=== PATIENT | male | born 1950 | race Caucasian/White ===

== ENCOUNTER → 2023-11-21 14:35 | Outpatient (REF) | payer MEDICARE, BC, SELFPAY ==
[2023-11-21 16:10] LABS: PSA, Total - Diagnostic < 0.06 ng/ml (0.0-4.0)
== END ==
LOC: REG 14:35
PROVIDERS: ATTENDING PHYSICIAN Specialist; FAMILY PHYSICIAN Family Medicine
DX: C61 Malignant neoplasm of prostate (principal)
CPT/HCPCS: 36415; 84153

== ENCOUNTER → 2024-02-11 10:51 | Outpatient (REF) | payer MEDICARE, BC, SELFPAY ==
[2024-02-11 12:05] LABS: % Basophils 1.2 % (0-2); % Immature Granulocytes 0.4 % (0-0.5); % Lymphocytes 38.1 % (20.5-51.1); % Monocytes 7.7 % (1.7-9.3); % Neutrophils 47.6 % (42.2-75.2); Absolute Basophils 0.1 10^3/uL (0-0.2); Absolute Eosinophils 0.4 10^3/uL (0-0.7); Absolute Lymphocytes 2.9 10^3/uL (1.2-3.4); Absolute Monocytes 0.6 10^3/uL (0.1-0.6); Absolute Neutrophils 3.6 10^3/uL (1.4-6.5); Hematocrit 42.1 % (39.0-52.0); Hemoglobin 14.8 g/dL (13.0-18.0); Mean Corp Hgb Conc. 35.2 g/dL (33.0-37.0); Mean Corpuscular Hgb 30.1 pg (27.0-31.0); Mean Corpuscular Volume 85.6 fL (80.0-94.0); Nucleated Red Blood Cells % 0 % (-); Platelet Count 176 10^3/uL (130-400); Red Blood Cell Count 4.92 10^6/uL (4.70-6.10); Red Cell Dist. Width 12.9 % (11.5-14.5); White Blood Cell Count 7.5 10^3/uL (4.8-10.8)
[2024-02-11 13:10] LABS: Microalbumin, Random Urine <0.6 mg/dl (0.6-1.7)
[2024-02-11 13:35] LABS: ALT (SGPT) 22 U/L (0-50); AST (SGOT) 31 U/L (17-59); Albumin 4.3 g/dl (3.5-5.0); Alkaline Phosphatase 74 U/L (38-126); Blood Urea Nitrogen 17 mg/dl (9-20); Calcium 9.8 mg/dl (8.4-10.2); Carbon Dioxide 28 mmol/L (22-30); Chloride 101 mmol/L (98-107); Glucose 149 mg/dl (70-99); HDL Cholesterol 60 mg/dl; LDL Cholesterol, Calculated 97 mg/dl; Potassium 4.3 mmol/L (3.5-5.1); Sodium 136 mmol/L (135-145); Total Bilirubin 0.7 mg/dl (0.2-1.3); Total Cholesterol 215 mg/dl (50-199); Total Protein 6.9 g/dl (6.3-8.2); Triglyceride 291 mg/dl (10-149); Very Low Density Lipoprotein 58 mg/dl (0-30); eGFR > 60.00
[2024-02-11 13:55] LABS: Glycohemoglobin (HgbA1c) 8.3 % (4.0-5.6)
[2024-02-11 14:13] LABS: TSH 1.19 uIU/ml (0.47-4.68)
== END ==
LOC: REG 10:51
PROVIDERS: ATTENDING PHYSICIAN Family Medicine
DX: E10.3553 Type 1 diabetes mellitus with stable proliferative diabetic retinopathy, bilateral (principal)
CPT/HCPCS: 36415; 80053; 80061; 82043; 82570; 83036; 84443; 85025

== ENCOUNTER → 2024-07-01 12:06 | Outpatient (REF) | payer MEDICARE, BC, SELFPAY ==
[2024-07-01 14:11] LABS: PSA, Total - Diagnostic < 0.06 ng/ml (0.0-4.0)
== END ==
LOC: REG 12:06
PROVIDERS: ATTENDING PHYSICIAN Specialist; FAMILY PHYSICIAN Family Medicine
DX: C61 Malignant neoplasm of prostate (principal)
CPT/HCPCS: 36415; 84153

== ENCOUNTER → 2024-12-06 10:20 | Outpatient (REF) | payer MEDICARE, BC, SELFPAY ==
[2024-12-06 11:27] LABS: % Basophils 0.6 % (0-2); % Immature Granulocytes 0.6 % (0-0.5); % Monocytes 6.3 % (1.7-9.3); % Neutrophils 56.5 % (42.2-75.2); Absolute Basophils 0.1 10^3/uL (0-0.2); Absolute Eosinophils 0.5 10^3/uL (0-0.7); Absolute Immature Granulocytes 0.1 10^3/uL (0-0.05); Absolute Lymphocytes 2.9 10^3/uL (1.2-3.4); Absolute Monocytes 0.6 10^3/uL (0.1-0.6); Absolute Neutrophils 5.2 10^3/uL (1.4-6.5); Hemoglobin 15.5 g/dL (13.0-18.0); Mean Corp Hgb Conc. 33.7 g/dL (33.0-37.0); Mean Corpuscular Hgb 29.8 pg (27.0-31.0); Mean Corpuscular Volume 88.3 fL (80.0-94.0); Mean Platelet Volume 9.5 fL (7.4-10.4); Nucleated Red Blood Cells % 0 % (-); Platelet Count 189 10^3/uL (130-400); Red Blood Cell Count 5.21 10^6/uL (4.70-6.10); Red Cell Dist. Width 13.2 % (11.5-14.5); White Blood Cell Count 9.3 10^3/uL (4.8-10.8)
[2024-12-06 11:52] LABS: Microalbumin, Random Urine 2.3 mg/dl (0.6-1.7); Microalbumin/creatinine Ratio 25.6 mg/g
[2024-12-06 12:18] LABS: ALT (SGPT) 22 U/L (0-50); AST (SGOT) 25 U/L (17-59); Albumin 4.2 g/dl (3.5-5.0); Alkaline Phosphatase 84 U/L (38-126); Blood Urea Nitrogen 13 mg/dl (9-20); Calcium 9.4 mg/dl (8.4-10.2); Carbon Dioxide 30 mmol/L (22-30); Chloride 96 mmol/L (98-107); Glucose 187 mg/dl (70-99); HDL Cholesterol 60 mg/dl; LDL Cholesterol, Calculated 102 mg/dl; Potassium 4.3 mmol/L (3.5-5.1); Sodium 135 mmol/L (135-145); Total Bilirubin 0.8 mg/dl (0.2-1.3); Total Cholesterol 222 mg/dl (50-199); Total Protein 7.1 g/dl (6.3-8.2); Triglyceride 303 mg/dl (10-149); Very Low Density Lipoprotein 60 mg/dl (0-30); eGFR > 60.00
[2024-12-06 12:39] LABS: PSA, Total - Diagnostic < 0.06 ng/ml (0.0-4.0); TSH 1.61 uIU/ml (0.47-4.68)
[2024-12-06 13:23] LABS: Glycohemoglobin (HgbA1c) 8.5 % (4.0-5.6)
== END ==
LOC: REG 10:20
PROVIDERS: ATTENDING PHYSICIAN Specialist; FAMILY PHYSICIAN Family Medicine
DX: C61 Malignant neoplasm of prostate (principal); E10.9 Type 1 diabetes mellitus without complications
CPT/HCPCS: 36415; 80053; 80061; 82043; 82570; 83036; 84153; 84443; 85025

== ENCOUNTER → 2025-08-08 12:00 | Outpatient (REF) | payer MEDICARE, BC, SELFPAY | LOC: DHSLP 12:00 | PROVIDERS: ATTENDING PHYSICIAN Family Medicine; FAMILY PHYSICIAN Internal Medicine Critical Care Medicine | DX: G47.33 Obstructive sleep apnea (adult) (pediatric) (principal) | CPT/HCPCS: 95800 ==

== ENCOUNTER 2025-08-14 16:41 | Emergency (ER) | payer MEDICARE, BC, SELFPAY ==
[2025-08-14 16:53] VITALS: BP 124/79
[2025-08-14 17:17] LABS: Hematocrit 43.2 % (39.0-52.0); Hemoglobin 14.8 g/dL (13.0-18.0); Mean Corp Hgb Conc. 34.3 g/dL (33.0-37.0); Mean Corpuscular Volume 85.9 fL (80.0-94.0); Nucleated Red Blood Cells % 0 % (-); Platelet Count 172 10^3/uL (130-400); Red Cell Dist. Width 13.2 % (11.5-14.5)
[2025-08-14 17:27] LABS: Urine Character Cloudy (Clear)
[2025-08-14 17:39] LABS: Urine Red Blood Cell 90-100 /HPF (0-2); Urine Squamous Cell 0-2 /LPF (Few)
[2025-08-14 17:41] LABS: ALT (SGPT) 31 U/L (0-50); AST (SGOT) 34 U/L (17-59); Albumin 4.6 g/dl (3.5-5.0); Alkaline Phosphatase 88 U/L (38-126); Blood Urea Nitrogen 14 mg/dl (9-20); Calcium 9.6 mg/dl (8.4-10.2); Carbon Dioxide 30 mmol/L (22-30); Chloride 98 mmol/L (98-107); Glucose 157 mg/dl (70-99); Potassium 3.7 mmol/L (3.5-5.1); Sodium 133 mmol/L (135-145); Total Protein 7.5 g/dl (6.3-8.2); eGFR > 60.00
[2025-08-14 18:34] VITALS: BP 153/69
[2025-08-14 19:00] VITALS: BP 155/74
[2025-08-14 20:00] VITALS: BP 145/63
[2025-08-14 21:33] VITALS: BP 150/71
--- NOTE | 2025-08-14 21:47 | ED.GENMED ---
History of Present Illness
General
Chief Complaint: Urinary Symptoms
Source: patient and spouse
Exam Limitations: none
Time Seen by Provider: 08/14/25 19:05
Nursing documentation reviewed up to this point in time: agreed with
History of Present Illness
History of Present Illness:
Note:
CHIEF COMPLAINT(S)
Hematuria (blood in urine), burning with urination
HISTORY OF PRESENT ILLNESS
The patient is a 74-year-old male presenting with hematuria which was first noticed around 3:00 PM after returning from a shopping trip to [facility]. The patient reported significant blood in the urine observed at home. He mentioned subsequent
episodes of hematuria, described as bright red and later dark in color. The patient is not on blood thinners and denies a history of kidney issues. There is a slight burning sensation with urination that commenced with the last few voids. No fever,
chills, nausea, vomiting, chest pain, or respiratory symptoms were reported. The patient does experience chronic back pain, but no acute changes were noted. The patient is also known to be a prostate cancer surgery candidate, with surgery performed
five years ago by his urologist, Dr. Choe, and has had no issues since.
PAST MEDICAL AND SURGICAL HISTORY
The patient underwent prostate cancer surgery five years ago.
REVIEW OF SYSTEMS
- Genitourinary: Presents with hematuria and mild burning sensation during urination.
- Musculoskeletal: Chronic back pain without changes.
- Neurological: Reports slight neck ache earlier, resolved with analgesics.
PHYSICAL EXAM
General: Alert, no acute distress.
Skin: Warm, dry.
Head: Normocephalic, atraumatic.
Neck: Supple, trachea midline.
Eye, Ear, Nose, Mouth, and Throat: Oral mucosa moist.
Cardiovascular: Normal peripheral perfusion, No edema.
Respiratory: Respirations are non-labored.
Gastrointestinal: Abdomen nondistended.
Back: Normal range of motion, Normal alignment.
Musculoskeletal: Normal range of motion, normal strength.
Neurological: Alert and oriented to person, place, time, and situation, No focal neurological deficit observed.
Psychiatric: Cooperative, appropriate mood & affect.
PLAN
- Examination of blood work results when available.
- Plan to perform a CT scan to identify the source of hematuria.
- Monitor for urinary tract infection as a potential cause.
DIFFERENTIAL DIAGNOSIS
The Differential Diagnosis includes, in no particular order and is not limited to:
1. Urinary tract infection
2. Bladder cancer
3. Kidney stones
4. Benign prostatic hyperplasia
5. Renal carcinoma
6. Prostate cancer recurrence
7. Urethral trauma or inflammation
8. Glomerulonephritis
9. Hemorrhagic cystitis
10. Anticoagulation-related bleeding (despite no known use)
Disposition:
SUMMARY OF ENCOUNTER
The patient, a 74-year-old male, presented with hematuria, which appeared to have resolved during his stay in the emergency department. A CT scan of the abdomen and pelvis revealed a 1-mm cyst in the lateral left-mid kidney, with no evidence of
urinary tract calculi. There was stranding of the perinephric fat bilaterally, which was non-specific but raised the possibility of a urinary tract infection (UTI). The patient reported feeling much better and expressed a wish to be discharged.
DISPOSITION
Discharge.
ASSESSMENT
The patient presents with resolved hematuria. CT findings suggest a possible urinary tract infection due to perinephric fat stranding.
PLAN
The patient is to monitor symptoms and follow up with urologist Dr. Choe.
INDEPENDENT REVIEW OF LABS AND INTERPRETATION OF TESTS
My independent interpretation of the CT scan of the abdomen and pelvis indicates a small 1-mm cyst in the lateral left-mid kidney and mild to moderate stranding of the perinephric fat bilaterally. No evidence of urinary tract calculi is present.
FOLLOW-UP INSTRUCTIONS
The patient should follow up with Dr. Choe, urology, as an outpatient.
MEDICATION RECONCILIATION
Started on cephalexin (Keflex).
MEDICAL DECISION MAKING
-Number and Complexity of Problems Addressed: The patient has a history of prostate cancer surgery and presents with resolved hematuria. Differential diagnosis includes urinary tract infection, benign prostatic hyperplasia, renal carcinoma, and
others.
-Data:
Category 1: Ordered and independently interpreted CT scan of the abdomen and pelvis.
Category 3: Patient to follow up with urologist Dr. Choe for further management.
-Risk: Prescription medication was prescribed (cephalexin). Consideration of Admission/Observation: Escalation of care including admission/observation was considered given the complexity and risk of the patients presenting complaint, exam findings,
and/or their underlying comorbidities. However, ultimately, I feel the patient is safe for outpatient management with close follow-up. Reasoning: Work-up reassuring, does not reveal any acute life/organ-threatening processes, patients symptoms well
controlled upon reevaluation, reexamination is reassuring, vitals are stable, patient agreeable with discharge, reliable for follow-up.
DIAGNOSIS
Possible urinary tract infection (N39.0).
Past History
Past History
ED Past Medical History: Asthma, Cancer and IDDM
ED Past Surgical History: Urological
Social History
Personal:
Living: with family
Phy Exam
Physical Exam
Physical Exam:
.
Course
Orders/Labs/Results
Orders:
Orders
08/14/25 17:02
Urinalysis Reflex To Culture Urgent
Date Specimen was Collected: 08/14/25
Time Specimen was Collected: 16:58
Urine Microscopic Reflex Cult Urgent
Urine Culture Urgent
ALON Source: U
Specimen Description:
Date Specimen was Collected: 08/14/25
Time Specimen was Collected: 16:58
08/14/25 17:06
Complete Blood Count/With Diff Urgent
Comprehensive Metabolic Panel Urgent
08/14/25 19:50
CT Abd/pel Without Iv Or Oral Urgent
Comment:
Reason For Exam: hematuria
08/14/25 21:42
Cephalexin Monohydrate [Keflex] 500 mg PO NOW STA
Abnormal Lab Results
08/14/25 08/14/25
17:02 17:06
Absolute Neuts (auto) 6.6 H 10^3/uL
(1.4-6.5)
Sodium 133 L mmol/L
(135-145)
Glucose 157 H mg/dl
(70-99)
Ur Occult Blood Reflex 4+ A
(Negative)
Leukocyte Esterase Rfl 2+ A
(Negative)
Urine RBC 90-100 A /HPF
(0-2)
Urine Bacteria (Reflex) Few A
(Negative)
Urine Albumin (Reflex) 3+ A
(Neg - Trace)
08/14/25 17:06
08/14/25 17:06
Vital Signs
Initial and Last Documented VS:
Initial Vital Signs
Temp Pulse Resp BP Pulse Ox
98.1 F 82 18 124/79 98
08/14/25 16:53 08/14/25 16:53 08/14/25 16:53 08/14/25 16:53 08/14/25 16:53
Last Documented Vital Signs
Temp Pulse Resp BP Pulse Ox
98.1 F 82 18 124/79 98
08/14/25 16:53 08/14/25 16:53 08/14/25 16:53 08/14/25 16:53 08/14/25 16:53
*Radiology
Radiology exam reviewed: radiology read reviewed
*Pulse Oximetry
SaO2: 98
Oxygen Mode of Delivery: Room air
Patient hypoxic: no
*Critical Care Note
Total Time (30-74mins, 75-104mins- exclusive of procedures): Not Applicable
ED Attending Note
-
Portions of this chart may have been created with voice recognition software.� Occasional wrong word or��sound alike� substitutions may have occurred due to the inherent limitations of voice recognition software.
Discharge Plan
Departure
Patient Disposition: Home (Routine Discharge)
Date of Disposition: 08/14/25
Time of Disposition: 21:43
Patient with high blood pressure during this ER visit?: Yes
Condition: Good
Discharge Problem:
Acute UTI, Hematuria
Instructions: Urinary Tract Infection, Adult (DC), Blood in the Urine (Hematuria), Adult (DC), BLOOD PRESSURE
Prescriptions:
New
cephalexin 500 mg tablet
500 mg PO Q12H 10 Days Qty: 20 0RF
No Action
atorvastatin 20 MG tablet
20 mg PO DAILY
insulin glargine [Lantus U-100 Insulin] 100 UNIT/ML solution
45 units SQ HS
tramadol 50 MG tablet
50 mg PO Q6HPRN PRN (Reason: pain)
valsartan-hydrochlorothiazide [Diovan HCT] 1 EACH tablet
0.5 ea PO HS
famotidine 20 MG tablet
20 mg PO HS
dicyclomine 20 MG tablet
20 mg PO QIDPRN PRN (Reason: nausea)
pantoprazole 40 MG tablet,delayed release (DR/EC)
40 mg PO DAILY
lorazepam 1 MG tablet
1 mg PO Q4HPRN PRN (Reason: ANXIETY)
insulin lispro [Humalog U-100 Insulin] 100 UNIT/ML solution
4 - 12 unit SC QID
Patient Comments:
SS per sensor
tadalafil [Cialis] 5 MG tablet
5 mg PO HS
fexofenadine-pseudoephedrine [Kellee-D 24 Hour] 1 EACH tablet extended release 24 hr
1 ea PO PRN PRN (Reason: nasal congestion)
multivitamin with folic acid [Tab-A-Elo] 1 TABLET tablet
1 tab PO DAILY
Fiorinal
1 tab PO PRN PRN (Reason: migrain)
STELARA:
1 dose IM .Q8-10WEEKS
magnesium citrate [Citroma] 300 ML solution
300 ml PO ONCE
Referrals:
David Choe MD [Active, Urology] - Next open appointment
Moody Hinojosa MD [Family Provider, Family Practice]
Activity Restrictions/Additional Instructions:
Your prescriptions were sent electronically to the pharmacy that you specified.
Thank You for choosing [facility].
It was a pleasure meeting you and taking part in your care. We hope for your continued healing and wellness.
Please read discharge instructions in their entirety. However, they are for general education and may not describe your exact diagnosis at discharge. Information on your ER visit and medical conditions were discussed with you along with appropriate
follow up information...
If indicated, please take your medications as instructed and indicated on discharge paperwork.
Please schedule a follow up appointment as directed. Call to schedule an appointment
Please return to the emergency department with ANY change in, persisting, or worsening of symptoms. If any of your symptoms do not improve, or persist, or become more severe within 6-12 hours, please return to the emergency department for further
care.
Please return to the emergency department if you develop a headache, neck pain/stiffness, fever greater than 100.4F, chest pain, shortness of breath, persistent nausea, vomiting, slurred speech, difficulty walking, numbness/tingling, weakness, signs
of infection or any other symptoms that are worrisome to you.
If you have any questions or concerns please do not hesitate to call the Hospital at .
Interventions
Interventions:
*Risk Screen - Suicide Last Done: 08/14/25 16:53
*General Assessment Last Done: 08/14/25 16:53
Discharge Date and Time
Print Language: MALTESE
[2025-08-14] MEDS: KEFLEX 500 MG PO (21:49)
== END 2025-08-14 21:54 | disposition home or self-care (01) ==
LOC: EMR 16:41
PROVIDERS: Emergency Medicine; EMERGENCY PHYSICIAN Student in an Organized Health Care Education/Training Program; FAMILY PHYSICIAN Family Medicine
DX: N39.0 Urinary tract infection, site not specified (principal); R03.0 Elevated blood-pressure reading, without diagnosis of hypertension; N28.1 Cyst of kidney, acquired; E10.9 Type 1 diabetes mellitus without complications; J45.909 Unspecified asthma, uncomplicated; M54.9 Dorsalgia, unspecified; G89.29 Other chronic pain; Z79.4 Long term (current) use of insulin; Z85.46 Personal history of malignant neoplasm of prostate; Z90.79 Acquired absence of other genital organ(s)
CPT/HCPCS: 99284; 74176; 80053; 81003; 81015; 85025; 87086

== ENCOUNTER → 2025-10-04 10:44 | Outpatient (REF) | payer MEDICARE, BC, SELFPAY ==
[2025-10-04 12:47] LABS: Blood Urea Nitrogen 19 mg/dl (9-20); Calcium 8.9 mg/dl (8.4-10.2); Carbon Dioxide 27 mmol/L (22-30); Chloride 99 mmol/L (98-107); Glucose 192 mg/dl (70-99); HDL Cholesterol 54 mg/dl; LDL Cholesterol, Calculated 100 mg/dl; Potassium 4.4 mmol/L (3.5-5.1); Sodium 134 mmol/L (135-145); Very Low Density Lipoprotein 42 mg/dl (0-30); eGFR > 60.00
[2025-10-04 12:58] LABS: Glycohemoglobin (HgbA1c) 8.5 % (4.0-5.9)
[2025-10-04 13:31] LABS: Microalbumin, Random Urine 2.2 mg/dl (0.6-1.7)
== END ==
LOC: REG 10:44
DX: E10.3553 Type 1 diabetes mellitus with stable proliferative diabetic retinopathy, bilateral (principal); Z68.30 Body mass index [BMI] 30.0-30.9, adult; Z79.4 Long term (current) use of insulin; I10 Essential (primary) hypertension
CPT/HCPCS: 36415; 80048; 80061; 82043; 82570; 83036